=== PATIENT | male | born 1950 | race Caucasian/White ===

== ENCOUNTER 2016-12-11 18:56 | Emergency (ER) | payer OTHER ==
[~2016-12-11] VITALS: Ht 188 cm; Wt 98.9 kg
[2016-12-11 19:03] VITALS: BP 149/92
[2016-12-11] MEDS ORDERED: DIPH,PERTUSS(ACELL),TET VAC/PF 0.5 ML IM-VACC ONE ×2 (20:11→20:30)
[2016-12-11] MEDS ORDERED: LIDOCAINE-MPF 2% ,5ML ONE (20:11)
[2016-12-11] MEDS ORDERED: LIDOCAINE 2%, 20ML INFIL ONE (20:30)
[2016-12-11] MEDS ORDERED: BACITRACIN ZINC OINT 500U/GM, 0.9 GM ONE (21:18)
== END 2016-12-11 21:23 | disposition home or self-care (01) ==
LOC: EDBD 18:56 → EDSEX 18:56 → ED 21:02
DX: S61.411A Laceration without foreign body of right hand, initial encounter (principal); X58.XXXA Exposure to other specified factors, initial encounter; Y93.89 Activity, other specified; Y99.8 Other external cause status; Y92.009 Unspecified place in unspecified non-institutional (private) residence as the place of occurrence of the external cause
CPT/HCPCS: 12002; 90471; 90715